=== PATIENT | male | born 1985 | race Two or more races ===

== ENCOUNTER 2018-12-01 16:24 | Inpatient (IN) | payer OTHER ==
[~2018-12-01] VITALS: Ht 188 cm; Wt 68.9 kg
--- NOTE | 2018-12-01 16:40 | NUR ---
[place] 16 TRISTANIAN INSERTED AND URINE COLLECTED.
[2018-12-01] MEDS ORDERED: ETOMIDATE 20 MG/10 ML IVPush ONE (17:00)
[2018-12-01] MEDS ORDERED: SUCCINYLCHOLINE 20 MG/ML, 10ML IVPush ONE (17:00)
[2018-12-01] MEDS ORDERED: PROPOFOL 100 ML IV PRN (17:00)
[2018-12-01] MEDS ORDERED: PLEASE ENTER HEIGHT AND WEIGHT MC SCH (17:00)
[2018-12-01 17:01] LABS: BASOPHILS # (AUTO) 0.04 x10^3/uL (0-0.1); BASOPHILS % (AUTO) 1 % (0-1); EOSINOPHILS # (AUTO) 0.39 x10^3/uL (0-0.4); EOSINOPHILS % (AUTO) 6 % (1-7); LYMPHOCYTES # (AUTO) 2.24 x10^3/uL (1-3.4); LYMPHOCYTES % (AUTO) 36 % (22-44); MD NO; MEAN CORPUSCULAR HEMOGLOBIN 34.2 pg (27.5-34.5); MEAN CORPUSCULAR HGB CONC 33.4 g/dL (33.2-36.2); MEAN CORPUSCULAR VOLUME 102.3 fL (81-97); MEAN PLATELET VOLUME 6.9 fL (7.4-10.4); MONOCYTES # (AUTO) 0.22 x10^3/uL (0.2-0.8); MONOCYTES % (AUTO) 4 % (2-9); NEUTROPHILS # (AUTO) 3.28 x10^3/uL (1.8-6.8); NEUTROPHILS % (AUTO) 53 % (42-75); PLATELET COUNT 292 x10^3/uL (130-400); RED BLOOD COUNT 4.27 x10^6/uL (4.38-5.82); RED CELL DISTRIBUTION WIDTH 12.8 % (9.4-14.8)
[2018-12-01 17:06] LABS: ALANINE AMINOTRANSFERASE 35 U/L (12-78); ANION GAP 9 mmol/L (5-15); CALCIUM 8.6 mg/dL (8.5-10.1); CHLORIDE 112 mmol/L (98-107)
[2018-12-01 17:09] LABS: ALKALINE PHOSPHATASE 109 U/L (45-117); BILIRUBIN,TOTAL 0.5 mg/dL (0.2-1.0); TOTAL PROTEIN 8.1 g/dL (6.4-8.2)
--- NOTE | 2018-12-01 17:32 | NUR ---
LATE ENTRY: 1630: PT BIB [facility] WHERE PT WAS FOUND DOWN IN ALLEY WAY PRONE. PT WITH GCS OF 3 PER [facility]. PT WITH NO GAG REFLEX. MD AT BEDSIDE. PT PREPPED FOR INTUBATION.
--- NOTE | 2018-12-01 17:34 | NUR ---
1630 LATE ENTRY: PT GIVEN 20 ETOMIDATE AND 100 OF SUCCINYLCHOLINE IV. PT INTUBATED WITH ET TUBE OF 8, 26 AT THE LIP. PT GIVE PROPOFOL IV PUSH OF 30 MCG BY FOR SEDATION. 1648 NG TUBE INSERTED RIGHT NARE AND PLACEMENT VERIFIED BY AUSCULTATION OF ABDOMEN. 2ND IV STARTED LEFT AC 18 GAUGE.
--- NOTE | 2018-12-01 17:40 | NUR ---
REPORT GIVEN TO ANA MARIA MANAGER WELDING. PT TO GO TO CT PRIOR TO GOING UPSTAIRS.
--- NOTE | 2018-12-01 17:41 | NUR ---
VENT SETTINGS: 50% O2, 5.0 PEEP, 550 TV,14 RESP
--- NOTE | 2018-12-01 18:03 | NUR ---
PT TAKEN TO CT SCAN PRIOR TO GOING UPSTAIRS TO FLOOR
[2018-12-01 18:17] LABS: AMPHETAMINE SCREEN, URINE Negative (Negative); BARBITURATE SCREEN, URINE Negative (Negative); BENZODIAZEPINE SCREEN, URINE Negative (Negative); CANNABINOID SCREEN, URINE Negative (Negative); COCAINE SCREEN, URINE Negative (Negative); METHADONE SCREEN, URINE Negative (Negative); OPIATE SCREEN, URINE Negative (Negative)
--- NOTE | 2018-12-01 18:31 | NUR ---
PT BACK FROM CT SCAN. PT PLACED BACK ON CARDIAC, BP, SPO2 MONITOR. PT PLACED BACK ON VENT.
--- NOTE | 2018-12-01 18:36 | NUR ---
LAB AT BEDSIDE FOR ABGS
[2018-12-01] MEDS ORDERED: OMNIPAQUE 350 MG/ML, 100ML BOTTLE ONE (18:44)
--- NOTE | 2018-12-01 18:58 | NUR ---
REPORT GIVEN TO CRYSTAL SHARMA. PT WILL THEN BE TRANSFERRED TO CCU.
[2018-12-01] MEDS ORDERED: SENNA/DOCUSATE TABLET NG PRN (19:30)
[2018-12-01] MEDS ORDERED: SENNA 176 MG/5 ML ORAL SOL NG PRN (19:30)
[2018-12-01] MEDS ORDERED: FENTANYL PF 100 MCG/2ML IVPush PRN (19:30)
[2018-12-01] MEDS ORDERED: ONDANSETRON 2MG/ML, 2ML IVPush PRN (19:30)
[2018-12-01] MEDS ORDERED: THIAMINE 200 MG in DEXTROSE 5% 50 ML IVPB ONE (19:30)
[2018-12-01] MEDS ORDERED: SODIUM CHLORIDE 0.9% 1,000ML IVBOLUS ONE (19:30)
[2018-12-01] MEDS ORDERED: LABETALOL 5MG/ML, 20ML IVPush PRN (19:30)
[2018-12-01] MEDS ORDERED: GLUCAGON 1 MG IM PRN (19:30)
[2018-12-01] MEDS ORDERED: BISACODYL 10 MG SUPP PR PRN (19:30)
[2018-12-01] MEDS ORDERED: LACTULOSE 20 GM/30 ML UDC NG PRN (19:30)
[2018-12-01] MEDS ORDERED: DEXTROSE 4 GM TAB.CHEW PO PRN (19:30)
[2018-12-01] MEDS ORDERED: PHARMACY MAY ADJ FOR RENAL FX MC SCH (19:30)
[2018-12-01] MEDS ORDERED: hydrALAzine 20 MG/ML, 1ML IVPush PRN (19:30)
[2018-12-01] MEDS ORDERED: FOLIC ACID 5 MG/ML IM ONE (19:30)
[2018-12-01] MEDS ORDERED: ACETAMINOPHEN 650 MG SUPP PR PRN (19:30)
[2018-12-01] MEDS ORDERED: LIDOCAINE-MPF 1%, 2ML ENDO PRN (19:30)
[2018-12-01] MEDS ORDERED: DEXTROSE 50%, 50ML SYRINGE IVPush PRN (19:30)
[2018-12-01] MEDS ORDERED: FAMOTIDINE 20 MG/2 ML IV SCH (20:00)
[2018-12-01] MEDS ORDERED: ENOXAPARIN 40 MG/0.4 ML SQ SCH (20:00)
[2018-12-01] MEDS: D5%-0.45NACL+KCL 40MEQ 1,000 ML IV SCH (20:12)
[2018-12-01 20:15] LABS: TROPONIN I < 0.015 ng/mL (0.000-0.045)
[2018-12-01] MEDS ORDERED: PROPOFOL 10 MG/ML, 20ML ONE (20:43)
[2018-12-01] MEDS ORDERED: SUCCINYLCHOLINE 20 MG/ML, 10ML ONE (20:43)
[2018-12-01] MEDS ORDERED: ETOMIDATE 20 MG/10 ML ONE (20:43)
[2018-12-01] MEDS ORDERED: PROPOFOL 10 MG/ML, 100ML IV ONE (20:43)
[2018-12-01] MEDS: INSULIN LISPRO 100 UNITS/ML, PEN SQ-INSULIN SCH (21:00)
[2018-12-01] MEDS: SODIUM CHLORIDE FLUSH 10ML SYR IVF SCH (21:00)
[2018-12-01] MEDS: HEPARIN 5,000 UNITS/ML, 1ML SQ SCH (21:26)
[2018-12-01] MEDS: FAMOTIDINE 20 MG/2 ML IVPush SCH (21:27)
[2018-12-01 21:31] LABS: SALICYLATE LEVEL < 1.7 mg/dL (2.8-20.0)
[2018-12-01] MEDS: AMPICILLIN/SULBACTAM 1,500 MG in SODIUM CHLORIDE 0.9% 50 ML IV SCH (21:34)
[2018-12-01] MEDS: ALBUTEROL/IPRATROPIUM 2.5MG/0.5MG, 3 ML INLINE SCH (23:30)
[2018-12-02 00:16] VITALS: BP 102/69
[2018-12-02] MEDS: PROPOFOL 100 ML IV PRN ×2 (00:33→06:21)
[2018-12-02] MEDS: ALBUTEROL/IPRATROPIUM 2.5MG/0.5MG, 3 ML INLINE SCH ×2 (02:17→06:58)
[2018-12-02 02:26] LABS: BASOPHILS # (AUTO) 0.02 x10^3/uL (0-0.1); BASOPHILS % (AUTO) 0 % (0-1); EOSINOPHILS # (AUTO) 0.18 x10^3/uL (0-0.4); EOSINOPHILS % (AUTO) 3 % (1-7); LYMPHOCYTES # (AUTO) 1.74 x10^3/uL (1-3.4); LYMPHOCYTES % (AUTO) 26 % (22-44); MD NO; MEAN CORPUSCULAR HEMOGLOBIN 34.5 pg (27.5-34.5); MEAN CORPUSCULAR HGB CONC 33.6 g/dL (33.2-36.2); MEAN CORPUSCULAR VOLUME 102.7 fL (81-97); MEAN PLATELET VOLUME 6.9 fL (7.4-10.4); MONOCYTES # (AUTO) 0.29 x10^3/uL (0.2-0.8); MONOCYTES % (AUTO) 4 % (2-9); NEUTROPHILS # (AUTO) 4.49 x10^3/uL (1.8-6.8); NEUTROPHILS % (AUTO) 67 % (42-75); PLATELET COUNT 245 x10^3/uL (130-400); RED BLOOD COUNT 3.98 x10^6/uL (4.38-5.82)
[2018-12-02 02:33] LABS: ALANINE AMINOTRANSFERASE 30 U/L (12-78); ALBUMIN 3.4 g/dL (3.4-5.0); ANION GAP 13 mmol/L (5-15); CALCIUM 7.8 mg/dL (8.5-10.1); CHLORIDE 117 mmol/L (98-107); CREATININE 0.64 mg/dL (0.7-1.3)
[2018-12-02 02:35] LABS: ALKALINE PHOSPHATASE 96 U/L (45-117); BILIRUBIN,TOTAL 0.5 mg/dL (0.2-1.0); TOTAL PROTEIN 6.9 g/dL (6.4-8.2)
[2018-12-02 02:43] LABS: TROPONIN I < 0.015 ng/mL (0.000-0.045)
[2018-12-02] MEDS: AMPICILLIN/SULBACTAM 1,500 MG in SODIUM CHLORIDE 0.9% 50 ML IV SCH ×4 (03:36→21:54)
[2018-12-02] MEDS: HEPARIN 5,000 UNITS/ML, 1ML SQ SCH ×3 (03:36→20:42)
[2018-12-02] MEDS: D5%-0.45NACL+KCL 40MEQ 1,000 ML IV SCH (04:00)
[2018-12-02 04:13] LABS: MICROSCOPIC AUTO
[2018-12-02 04:14] LABS: CULTURE INDICATED? NO
[2018-12-02] MEDS: INSULIN LISPRO 100 UNITS/ML, PEN SQ-INSULIN SCH (06:14)
[2018-12-02] MEDS ORDERED: D5%-0.45NACL+KCL 40MEQ 1,000 ML IV SCH (08:30)
[2018-12-02] MEDS: SODIUM CHLORIDE FLUSH 10ML SYR IVF SCH ×2 (08:56→19:26)
[2018-12-02] MEDS: FAMOTIDINE 20 MG/2 ML IVPush SCH ×2 (08:56→20:42)
[2018-12-02] MEDS ORDERED: MAGNESIUM SULFATE PMX 2GM/50ML 50 ML IV ONE (12:00)
[2018-12-02] MEDS ORDERED: THIAMINE IV SCH (19:00)
[2018-12-02] MEDS ORDERED: THIAMINE 100 MG in SODIUM CHLORIDE 0.9% 50 ML IV SCH (19:00)
[2018-12-02] MEDS ORDERED: CHLORDIAZEPOXIDE 25 MG CAPSULE PO SCH ×2 (19:00→21:00)
[2018-12-02] MEDS ORDERED: LORazepam 1MG TABLET PO PRN ×4 (19:00)
[2018-12-02] MEDS ORDERED: LORazepam 0.5MG TABLET PO PRN (19:00)
[2018-12-02] MEDS ORDERED: LORazepam 2 MG/ML, 1ML IV PRN ×4 (19:00)
[2018-12-02] MEDS ORDERED: DEXTROSE 5% IV SCH (19:00)
[2018-12-02] MEDS ORDERED: FOLIC ACID IV SCH (19:00)
[2018-12-02] MEDS ORDERED: MVI ADULT IV SCH (19:00)
[2018-12-02] MEDS: LORazepam 2 MG/ML, 1ML IV PRN (19:18)
[2018-12-03] MEDS: CHLORDIAZEPOXIDE 25 MG CAPSULE PO SCH ×7 (00:53→20:36)
[2018-12-03] MEDS: LORazepam 2 MG/ML, 1ML IV PRN (00:54)
[2018-12-03 04:19] LABS: BASOPHILS # (AUTO) 0.03 x10^3/uL (0-0.1); BASOPHILS % (AUTO) 1 % (0-1); EOSINOPHILS # (AUTO) 0.15 x10^3/uL (0-0.4); EOSINOPHILS % (AUTO) 3 % (1-7); LYMPHOCYTES # (AUTO) 0.85 x10^3/uL (1-3.4); LYMPHOCYTES % (AUTO) 17 % (22-44); MD NO; MEAN CORPUSCULAR HEMOGLOBIN 34.5 pg (27.5-34.5); MEAN CORPUSCULAR HGB CONC 34.1 g/dL (33.2-36.2); MEAN CORPUSCULAR VOLUME 101.1 fL (81-97); MEAN PLATELET VOLUME 7.2 fL (7.4-10.4); MONOCYTES # (AUTO) 0.36 x10^3/uL (0.2-0.8); MONOCYTES % (AUTO) 7 % (2-9); NEUTROPHILS # (AUTO) 3.55 x10^3/uL (1.8-6.8); NEUTROPHILS % (AUTO) 72 % (42-75); PLATELET COUNT 162 x10^3/uL (130-400); RED BLOOD COUNT 3.56 x10^6/uL (4.38-5.82); RED CELL DISTRIBUTION WIDTH 12.7 % (9.4-14.8)
[2018-12-03] MEDS: AMPICILLIN/SULBACTAM 1,500 MG in SODIUM CHLORIDE 0.9% 50 ML IV SCH (04:23)
[2018-12-03] MEDS: HEPARIN 5,000 UNITS/ML, 1ML SQ SCH ×3 (04:29→20:36)
[2018-12-03] MEDS: ACETAMINOPHEN 325 MG TABLET PO PRN ×2 (04:29→23:52)
[2018-12-03] MEDS ORDERED: LORazepam 2 MG/ML, 1ML IVPush PRN (07:00)
[2018-12-03 08:11] LABS: CREATININE 0.63 mg/dL (0.7-1.3)
[2018-12-03 08:27] LABS: ANION GAP 10 mmol/L (5-15); CALCIUM 8.6 mg/dL (8.5-10.1); CHLORIDE 106 mmol/L (98-107)
[2018-12-03] MEDS ORDERED: POTASSIUM CHLORIDE 20 MEQ TAB.ER.PRT PO ONE (09:00)
[2018-12-03] MEDS ORDERED: THIAMINE 100 MG in DEXTROSE 5% 50 ML IVPB SCH (09:00)
[2018-12-03] MEDS: AMPICILLIN/SULBACTAM 3 GM in SODIUM CHLORIDE 0.9% 100 ML IV SCH ×3 (09:36→23:49)
[2018-12-03] MEDS: SODIUM CHLORIDE FLUSH 10ML SYR IVF SCH ×2 (09:36→20:37)
[2018-12-03 13:30] VITALS: BP 131/88
[2018-12-03] MEDS ORDERED: CHLORDIAZEPOXIDE 25 MG CAPSULE PO SCH (17:00)
[2018-12-03] MEDS ORDERED: MVI ADULT IV SCH (19:00)
[2018-12-03] MEDS ORDERED: DEXTROSE 5% IV SCH (19:00)
[2018-12-03] MEDS ORDERED: FOLIC ACID IV SCH (19:00)
[2018-12-03] MEDS ORDERED: THIAMINE IV SCH (19:00)
[2018-12-03 19:56] VITALS: BP 130/72
[2018-12-04 01:01] VITALS: BP 122/77
[2018-12-04] MEDS: HEPARIN 5,000 UNITS/ML, 1ML SQ SCH ×2 (03:35→11:56)
[2018-12-04] MEDS: AMPICILLIN/SULBACTAM 3 GM in SODIUM CHLORIDE 0.9% 100 ML IV SCH ×2 (05:37→11:47)
[2018-12-04 06:11] LABS: ANION GAP 6 mmol/L (5-15); CALCIUM 8.8 mg/dL (8.5-10.1); CHLORIDE 107 mmol/L (98-107); CREATININE 0.58 mg/dL (0.7-1.3)
[2018-12-04] MEDS ORDERED: POTASSIUM CHLORIDE 20 MEQ TAB.ER.PRT PO ONE (06:30)
[2018-12-04 07:52] VITALS: BP 124/74
[2018-12-04] MEDS: CHLORDIAZEPOXIDE 25 MG CAPSULE PO SCH (08:07)
[2018-12-04] MEDS: SODIUM CHLORIDE FLUSH 10ML SYR IVF SCH (08:07)
[2018-12-04] MEDS ORDERED: AMOX1TAB61 PO (09:47)
[2018-12-04] MEDS ORDERED: MULT-658 PO (09:47)
[2018-12-04 14:10] VITALS: BP 139/80
== END 2018-12-04 15:50 | disposition home or self-care (01) | DRG 208 ==
LOC: ED 17:01 → EDBD 17:02 → EDIP 17:02 → ED 17:07 → CCU 19:17 → 3NE 12-03 11:19
PROVIDERS: ADMIT Internal Medicine; ATTEND Internal Medicine
PROC: 5A1935Z Respiratory Ventilation, Less than 24 Consecutive Hours (ICD-10-PCS; principal; 2018-12-01)
PROC: 0BH17EZ Insertion of Endotracheal Airway into Trachea, Via Natural or Artificial Opening (ICD-10-PCS; 2018-12-01)
PROC: 0T9B70Z Drainage of Bladder with Drainage Device, Via Natural or Artificial Opening (ICD-10-PCS; 2018-12-02)
DX: J96.00 Acute respiratory failure, unspecified whether with hypoxia or hypercapnia (principal); G92 Toxic encephalopathy; J69.0 Pneumonitis due to inhalation of food and vomit; F10.230 Alcohol dependence with withdrawal, uncomplicated; J98.11 Atelectasis; E87.0 Hyperosmolality and hypernatremia; M87.851 Other osteonecrosis, right femur; M87.852 Other osteonecrosis, left femur; Z99.11 Dependence on respirator [ventilator] status; K76.0 Fatty (change of) liver, not elsewhere classified; F10.220 Alcohol dependence with intoxication, uncomplicated; Y90.9 Presence of alcohol in blood, level not specified; F15.90 Other stimulant use, unspecified, uncomplicated; F19.10 Other psychoactive substance abuse, uncomplicated
CPT/HCPCS: 31500; 36415; 36600; 84145; 99291; J3490; J7620; 70450; 71045; 72125; 74177; 80048; 80053; 80307; 81001; 82803; 82962; 83605; 83690; 83735; 84100; 84478; 84484; 85025; 87070; 87081; 87205; 93005; 93306; 94002; 94003; 94640; G0378; J0295; J1644; J2704; J3010; J3411; J7070; Q9967; J0330; J2060; J3475; J3480; J7030

== ENCOUNTER 2019-04-09 17:06 | Emergency (ER) | payer MEDICAID ==
[~2019-04-09] VITALS: Ht 180.3 cm; Wt 90.0 kg
[~2019-04-09 17:06] MED LIST: AMOX1TAB61 PO; MULT-658 PO
--- NOTE | 2019-04-09 17:14 | NUR ---
PT BIB [facility] FOR ACUTE ETOH. FS ON SCENE 107. PT AAO X 4, STEADY GAIT, NAD, ROOM AIR, VSS. PT AMBULATORY TO [facility] AND ATTACHED TO MONITOR. PT DENIES MEDICATIONS AND MEDICAL HX. SIDERAIL X [address]
--- NOTE | 2019-04-09 17:15 | NUR ---
MED REC COMPLETED.
[2019-04-09] MEDS ORDERED: ONDANSETRON ODT 8 MG PO ONE (17:30)
[2019-04-09] MEDS ORDERED: ONDANSETRON ODT 8 MG ONE (17:32)
--- NOTE | 2019-04-09 17:34 | NUR ---
PT MEDICATED WITH PO ZOFRAN, REFUSED IM SHOT OF THIAMINE DESPITE EDUCATION. THIS RN TO UPDATE .
[2019-04-09] MEDS ORDERED: THIAMINE 100 MG/ML, 2ML IM ONE (18:00)
[2019-04-09 18:09] LABS: ANION GAP 10 mmol/L (5-15); CALCIUM 8.7 mg/dL (8.5-10.1); CHLORIDE 110 mmol/L (98-107); CREATININE 0.78 mg/dL (0.7-1.3)
--- NOTE | 2019-04-09 18:31 | NUR ---
LAB CALLED AND NOTIFIED THIS RN THAT ETHANOL RESULTS WAS 0.457. THIS RN TO NOTIFY
--- NOTE | 2019-04-09 18:33 | NUR ---
DR. FOY NOTIFED OF CRITICAL VALUE, NO NEW ORDERS RECEIVED AT THIS TIME.
--- NOTE | 2019-04-09 19:31 | NUR ---
PT ASLEEP ON GURNEY, AROUSABLE BUT UNABLE TO STAY AWAKE DURING CONVERSATION.
--- NOTE | 2019-04-09 21:14 | NUR ---
REPORT FROM STEPHY SHARMA. PT SLEEPING AND AROUSES TO VOICE. VSS.
--- NOTE | 2019-04-09 21:18 | NUR ---
REPORT GIVEN TO EDITH RAMOS. CARE TRANSFERRED AT THIS TIME.
--- NOTE | 2019-04-09 22:34 | NUR ---
PT SLEEPING WITH NO NEEDS AT THIS TIME. VSS. PT AROUSES TO VOICE. CALL LIGHT IN REACH
[2019-04-09 23:58] VITALS: BP 110/67
--- NOTE | 2019-04-09 23:58 | NUR ---
PT SLEEPING. EVEN RISE AND FALL OF CHEST OBSERVED. VSS. PT AROUSES TO VOICE AND THEN GOES BACK TO SLEEP. PT HAS NO NEEDS AT THIS TIME.
--- NOTE | 2019-04-10 01:21 | NUR ---
Patient given discharge instructions and they have confirmed that they understand the instructions. Patient ambulatory with steady gait and given a cab voucher for safe discharge
== END 2019-04-10 01:25 | disposition home or self-care (01) ==
LOC: ED 04-10 01:20
DX: F10.221 Alcohol dependence with intoxication delirium (principal); G92 Toxic encephalopathy
CPT/HCPCS: 36415; 80048; 80307; 83735; 99283; Q0162

== ENCOUNTER 2019-06-12 03:50 | Emergency (ER) | payer SELFPAY ==
[~2019-06-12] VITALS: Ht 180.3 cm; Wt 68.2 kg
--- NOTE | 2019-06-12 04:11 | NUR ---
Patient [place] in by EMS [place] on the sidewalk. EMS reports patient was unsteady and unable to walk on his own and he urinated on himself. Intoxicated and blew over a 0.3. Patient responds appropraitely to questions and reports he drinks like this often.
--- NOTE | 2019-06-12 05:54 | NUR ---
Attempted to walk patient, patient was unsteady on his feet and unable to walk at this time. Provider informed.
--- NOTE | 2019-06-12 06:19 | NUR ---
Patient resting in bed, arousable. O2 saturation dropped to 84% while sleeping oxygen applied via NC. 2L. patient saturations 98%.
--- NOTE | 2019-06-12 07:01 | NUR ---
report received from yumiko james.
[2019-06-12 07:53] VITALS: BP 106/54
--- NOTE | 2019-06-12 07:53 | NUR ---
pt sleeping in [facility]. resps even and unlabored. bp/spo2 monitors in place. call light within reach.
--- NOTE | 2019-06-12 09:03 | NUR ---
Patient given discharge instructions and they have confirmed that they understand the instructions. Patient ambulatory with steady gait.
== END 2019-06-12 09:04 | disposition home or self-care (01) ==
LOC: ED 08:58
DX: F10.120 Alcohol abuse with intoxication, uncomplicated (principal); Y90.0 Blood alcohol level of less than 20 mg/100 ml
CPT/HCPCS: 99283

== ENCOUNTER 2019-11-11 11:44 | Inpatient (IN) | payer MEDICAID ==
[~2019-11-11] VITALS: Ht 180.3 cm; Wt 75.6 kg
--- NOTE | 2019-11-11 11:50 | NUR ---
PT IN [facility], RESTING IN [facility] AT THIS TIME. VSS. AWAITING ERP EVAL.
[2019-11-11] MEDS ORDERED: HYDR-826 PO (11:57)
[2019-11-11] MEDS ORDERED: GABA600T7 PO (11:57)
[2019-11-11] MEDS ORDERED: FLUO20CA19 PO (11:57)
[2019-11-11] MEDS ORDERED: HYDR50TA99 PO (11:57)
--- NOTE | 2019-11-11 12:43 | NUR ---
seizure pads applied to bed. no seizure activity observed nor reported by pt.
[2019-11-11] MEDS ORDERED: SODIUM CHLORIDE FLUSH 10ML SYR IVF ONE (13:30)
[2019-11-11] MEDS ORDERED: SODIUM CHLORIDE 0.9% 1,000ML IVBOLUS ONE (13:30)
[2019-11-11 13:49] LABS: BASOPHILS # (AUTO) 0.02 x10^3/uL (0-0.1); BASOPHILS % (AUTO) 0 % (0-1); EOSINOPHILS # (AUTO) 0.13 x10^3/uL (0-0.4); EOSINOPHILS % (AUTO) 2 % (1-7); LYMPHOCYTES # (AUTO) 0.95 x10^3/uL (1-3.4); LYMPHOCYTES % (AUTO) 14 % (22-44); MD NO; MEAN CORPUSCULAR HEMOGLOBIN 29.2 pg (27.5-34.5); MEAN CORPUSCULAR HGB CONC 33.5 g/dL (33.2-36.2); MEAN CORPUSCULAR VOLUME 87.1 fL (81-97); MEAN PLATELET VOLUME 7.8 fL (7.4-10.4); MONOCYTES # (AUTO) 0.35 x10^3/uL (0.2-0.8); MONOCYTES % (AUTO) 5 % (2-9); NEUTROPHILS # (AUTO) 5.55 x10^3/uL (1.8-6.8); NEUTROPHILS % (AUTO) 79 % (42-75); PLATELET COUNT 213 x10^3/uL (130-400); RED BLOOD COUNT 4.73 x10^6/uL (4.38-5.82); RED CELL DISTRIBUTION WIDTH 12.2 % (9.4-14.8)
--- NOTE | 2019-11-11 13:50 | NUR ---
pt resting calmly in bed. no stated needs at this time. will continue to monitor.
[2019-11-11 13:58] LABS: ALBUMIN 3.6 g/dL (3.4-5.0); ANION GAP 5 mmol/L (5-15); CALCIUM 8.8 mg/dL (8.5-10.1); CHLORIDE 109 mmol/L (98-107); CREATININE 1.01 mg/dL (0.7-1.3)
[2019-11-11 14:02] LABS: TROPONIN I < 0.015 ng/mL (0.000-0.045)
--- NOTE | 2019-11-11 14:27 | NUR ---
pt resting calmly in bed with eyes closed. pt up for recheck. iv started, ordered fluids infusing. will continue to monitor.
--- NOTE | 2019-11-11 15:42 | NUR ---
PT CONTINUES TO REST IN BED WITH EYES CLOSED, DOZING INTERMITTANTLY. NO STATED NEEDS FROM PT. PT TO BE ADMITTED DUE TO SLOW HR. WILL CONTINUE TO MONITOR.
--- NOTE | 2019-11-11 16:22 | NUR ---
PT RESTING IN BED WITH EYES CLOSED. CALL LIGHT WITHIN REACH.
[2019-11-11] MEDS: NS + 20MEQ KCL 1,000 ML IV SCH (17:20)
[2019-11-11] MEDS ORDERED: ONDANSETRON 2MG/ML, 2ML IVPush PRN (17:30)
[2019-11-11] MEDS ORDERED: ACETAMINOPHEN 325 MG TABLET PO PRN (17:30)
[2019-11-11] MEDS ORDERED: LIDODERM 5% PATCH TD PRN (17:30)
[2019-11-11 18:07] LABS: TROPONIN I < 0.015 ng/mL (0.000-0.045)
[2019-11-11 18:12] LABS: FREE T4 (FREE THYROXINE) 1.27 ng/dL (0.76-1.46)
--- NOTE | 2019-11-11 18:29 | NUR ---
PT RESTING CALMLY IN BED. NO STATED NEEDS AT THIS TIME. WILL CONTINUE TO MONITOR.
--- NOTE | 2019-11-11 18:52 | NUR ---
bedside report given to Isaías SHARMA. pt resting calmly in bed. no stated needs at this time.
[2019-11-11] MEDS ORDERED: ENOXAPARIN 40 MG/0.4 ML ONE (19:08)
[2019-11-11] MEDS ORDERED: NS + 20MEQ KCL 1,000 ML IV ONE (19:09)
[2019-11-11] MEDS: ENOXAPARIN 40 MG/0.4 ML SQ SCH (19:17)
--- NOTE | 2019-11-11 20:39 | NUR ---
REPORT TO ISRA SHARMA, SEIZURE PRECAUTIONS IN PLACE.
[2019-11-11 20:57] VITALS: BP 100/66
--- NOTE | 2019-11-11 21:03 | NUR ---
REPORT TO ISRA SHARMA, SEIZURE PRECAUTIONS IN PLACE.
[2019-11-11 21:24] VITALS: BP 100/66
[2019-11-11] MEDS: FAMOTIDINE 20 MG TABLET PO SCH (21:42)
[2019-11-11] MEDS: GABAPENTIN 300 MG CAPSULE PO SCH (21:43)
[2019-11-11] MEDS: hydrOXyzine 50MG TABLET PO SCH (21:43)
[2019-11-11 23:48] LABS: TROPONIN I < 0.015 ng/mL (0.000-0.045)
[2019-11-12 01:33] VITALS: BP 99/62
[2019-11-12] MEDS: NS + 20MEQ KCL 1,000 ML IV SCH ×2 (04:53→15:01)
[2019-11-12 05:36] LABS: ALANINE AMINOTRANSFERASE 44 U/L (12-78); ALBUMIN 3.3 g/dL (3.4-5.0); ANION GAP 6 mmol/L (5-15); CALCIUM 8.6 mg/dL (8.5-10.1); CHLORIDE 113 mmol/L (98-107); CREATININE 0.82 mg/dL (0.7-1.3)
[2019-11-12 05:38] LABS: ALKALINE PHOSPHATASE 63 U/L (45-117); BILIRUBIN,TOTAL 0.5 mg/dL (0.2-1.0); TOTAL PROTEIN 6.6 g/dL (6.4-8.2)
[2019-11-12 05:44] LABS: BASOPHILS # (AUTO) 0.02 x10^3/uL (0-0.1); BASOPHILS % (AUTO) 0 % (0-1); EOSINOPHILS # (AUTO) 0.16 x10^3/uL (0-0.4); EOSINOPHILS % (AUTO) 4 % (1-7); LYMPHOCYTES # (AUTO) 1.54 x10^3/uL (1-3.4); LYMPHOCYTES % (AUTO) 33 % (22-44); MD NO; MEAN CORPUSCULAR HEMOGLOBIN 28.8 pg (27.5-34.5); MEAN CORPUSCULAR HGB CONC 33.1 g/dL (33.2-36.2); MEAN CORPUSCULAR VOLUME 87.2 fL (81-97); MEAN PLATELET VOLUME 8.2 fL (7.4-10.4); MONOCYTES # (AUTO) 0.32 x10^3/uL (0.2-0.8); MONOCYTES % (AUTO) 7 % (2-9); NEUTROPHILS # (AUTO) 2.66 x10^3/uL (1.8-6.8); NEUTROPHILS % (AUTO) 57 % (42-75); PLATELET COUNT 178 x10^3/uL (130-400); RED BLOOD COUNT 4.59 x10^6/uL (4.38-5.82); RED CELL DISTRIBUTION WIDTH 12.2 % (9.4-14.8)
[2019-11-12 07:39] VITALS: BP 117/64
[2019-11-12] MEDS: FAMOTIDINE 20 MG TABLET PO SCH ×2 (09:08→19:54)
[2019-11-12] MEDS: GABAPENTIN 300 MG CAPSULE PO SCH ×3 (09:08→19:54)
[2019-11-12] MEDS: FLUOXETINE HCL 20 MG CAPSULE PO SCH (09:08)
[2019-11-12 12:09] VITALS: BP_SYST 113; BP_SYST 116; BP_DIAS 58; BP_DIAS 72
[2019-11-12 12:10] VITALS: BP 102/59
[2019-11-12 12:17] LABS: MICROSCOPIC INDICATED
[2019-11-12] MEDS ORDERED: GADOTERATE 7.5 MMOL/15 ML SYR ONE (16:00)
[2019-11-12 19:37] VITALS: BP 102/64
[2019-11-12] MEDS: ENOXAPARIN 40 MG/0.4 ML SQ SCH (19:54)
[2019-11-12] MEDS: hydrOXyzine 50MG TABLET PO SCH (19:54)
[2019-11-13] MEDS: NS + 20MEQ KCL 1,000 ML IV SCH ×3 (00:43→16:32)
[2019-11-13 00:47] VITALS: BP 117/76
[2019-11-13 02:41] VITALS: BP 123/77
[2019-11-13 05:11] LABS: BASOPHILS # (AUTO) 0.02 x10^3/uL (0-0.1); BASOPHILS % (AUTO) 0 % (0-1); EOSINOPHILS # (AUTO) 0.14 x10^3/uL (0-0.4); EOSINOPHILS % (AUTO) 3 % (1-7); LYMPHOCYTES # (AUTO) 1.48 x10^3/uL (1-3.4); LYMPHOCYTES % (AUTO) 36 % (22-44); MD NO; MEAN CORPUSCULAR HGB CONC 33.2 g/dL (33.2-36.2); MEAN CORPUSCULAR VOLUME 87.3 fL (81-97); MEAN PLATELET VOLUME 8.2 fL (7.4-10.4); MONOCYTES # (AUTO) 0.29 x10^3/uL (0.2-0.8); MONOCYTES % (AUTO) 7 % (2-9); NEUTROPHILS % (AUTO) 53 % (42-75); PLATELET COUNT 163 x10^3/uL (130-400); RED CELL DISTRIBUTION WIDTH 12.6 % (9.4-14.8)
[2019-11-13 05:16] LABS: ANION GAP 6 mmol/L (5-15); CALCIUM 8.9 mg/dL (8.5-10.1); CHLORIDE 111 mmol/L (98-107); CREATININE 0.81 mg/dL (0.7-1.3)
[2019-11-13 06:52] VITALS: BP 108/64
[2019-11-13] MEDS: GABAPENTIN 300 MG CAPSULE PO SCH ×3 (10:12→20:47)
[2019-11-13] MEDS: FLUOXETINE HCL 20 MG CAPSULE PO SCH (10:12)
[2019-11-13] MEDS: FAMOTIDINE 20 MG TABLET PO SCH ×2 (10:13→20:47)
[2019-11-13] MEDS ORDERED: CEFAZOLIN PMX 1GM/50ML 50 ML IVPB ONE (10:30)
[2019-11-13 13:07] VITALS: BP 98/58
[2019-11-13] MEDS: ENOXAPARIN 40 MG/0.4 ML SQ SCH (13:14)
[2019-11-13 19:08] VITALS: BP 105/60
[2019-11-13] MEDS: hydrOXyzine 50MG TABLET PO SCH (20:47)
[2019-11-14 00:28] VITALS: BP 106/63
[2019-11-14] MEDS: NS + 20MEQ KCL 1,000 ML IV SCH ×3 (01:09→21:06)
[2019-11-14 04:45] LABS: BASOPHILS # (AUTO) 0.02 x10^3/uL (0-0.1); BASOPHILS % (AUTO) 1 % (0-1); EOSINOPHILS # (AUTO) 0.16 x10^3/uL (0-0.4); EOSINOPHILS % (AUTO) 4 % (1-7); LYMPHOCYTES % (AUTO) 33 % (22-44); MD NO; MEAN CORPUSCULAR HEMOGLOBIN 29.3 pg (27.5-34.5); MEAN CORPUSCULAR HGB CONC 33.6 g/dL (33.2-36.2); MEAN PLATELET VOLUME 8.1 fL (7.4-10.4); MONOCYTES # (AUTO) 0.41 x10^3/uL (0.2-0.8); MONOCYTES % (AUTO) 10 % (2-9); NEUTROPHILS % (AUTO) 54 % (42-75); PLATELET COUNT 169 x10^3/uL (130-400); RED BLOOD COUNT 4.56 x10^6/uL (4.38-5.82); RED CELL DISTRIBUTION WIDTH 12.1 % (9.4-14.8)
[2019-11-14 04:54] LABS: CHLORIDE 111 mmol/L (98-107)
[2019-11-14 04:59] LABS: ANION GAP 7 mmol/L (5-15); CALCIUM 8.8 mg/dL (8.5-10.1); CREATININE 0.93 mg/dL (0.7-1.3)
[2019-11-14 06:37] VITALS: BP 112/67
[2019-11-14] MEDS: GABAPENTIN 300 MG CAPSULE PO SCH ×3 (08:11→21:06)
[2019-11-14] MEDS: FLUOXETINE HCL 20 MG CAPSULE PO SCH (08:11)
[2019-11-14] MEDS: FAMOTIDINE 20 MG TABLET PO SCH ×2 (08:11→21:06)
[2019-11-14] MEDS: SODIUM CHLORIDE 0.9% 1,000 ML IV SCH ×3 (10:07→23:36)
[2019-11-14 12:04] VITALS: BP 113/65
[2019-11-14] MEDS ORDERED: MIDAZOLAM 1 MG/ML, 5ML ONE (15:26)
[2019-11-14] MEDS ORDERED: CEFAZOLIN PMX 1GM/50ML 50 ML ONE ×2 (15:26→15:28)
[2019-11-14] MEDS ORDERED: FENTANYL PF 100 MCG/2ML ONE (15:26)
[2019-11-14] MEDS ORDERED: LIDOCAINE 2%, 20ML ONE (15:27)
[2019-11-14] MEDS ORDERED: CEFAZOLIN 1,000 MG ONE (15:27)
[2019-11-14] MEDS ORDERED: HOLD MEDICATION MC PRN (17:30)
[2019-11-14] MEDS ORDERED: HYDROcodone/APAP 5/325 TABLET PO PRN (17:30)
[2019-11-14 20:04] VITALS: BP 161/99
[2019-11-14] MEDS: SODIUM CHLORIDE FLUSH 10ML SYR IVF SCH (21:06)
[2019-11-14] MEDS: hydrOXyzine 50MG TABLET PO SCH (21:06)
[2019-11-15 01:54] VITALS: BP 123/53
[2019-11-15] MEDS: NS + 20MEQ KCL 1,000 ML IV SCH (05:00)
[2019-11-15 07:25] VITALS: BP 137/88
[2019-11-15] MEDS: GABAPENTIN 300 MG CAPSULE PO SCH (09:31)
[2019-11-15] MEDS: FLUOXETINE HCL 20 MG CAPSULE PO SCH (09:32)
[2019-11-15] MEDS: SODIUM CHLORIDE FLUSH 10ML SYR IVF SCH (09:32)
[2019-11-15] MEDS: FAMOTIDINE 20 MG TABLET PO SCH (09:32)
[2019-11-15] MEDS: SODIUM CHLORIDE 0.9% 1,000 ML IV SCH (10:29)
== END 2019-11-15 11:25 | disposition home or self-care (01) | DRG 244 ==
LOC: ED 15:43 → EDIP 15:57 → INTOOBSV 15:57 → OBSVTOIN 15:57 → 4EST 21:23 → 5SO 11-14 17:18 → DCLOUNGE 11-15 11:15
PROVIDERS: ADMIT Internal Medicine; ATTEND Hospitalist
PROC: 0JH606Z Insertion of Pacemaker, Dual Chamber into Chest Subcutaneous Tissue and Fascia, Open Approach (ICD-10-PCS; principal; 2019-11-14)
PROC: 02HK3JZ Insertion of Pacemaker Lead into Right Ventricle, Percutaneous Approach (ICD-10-PCS; 2019-11-14)
PROC: 02H63JZ Insertion of Pacemaker Lead into Right Atrium, Percutaneous Approach (ICD-10-PCS; 2019-11-14)
PROC: 4B02XSZ Measurement of Cardiac Pacemaker, External Approach (ICD-10-PCS; 2019-11-15)
DX: R00.1 Bradycardia, unspecified (principal); I95.0 Idiopathic hypotension; R56.9 Unspecified convulsions; Z82.49 Family history of ischemic heart disease and other diseases of the circulatory system; Z95.0 Presence of cardiac pacemaker; Z87.891 Personal history of nicotine dependence
CPT/HCPCS: 33208; 36415; 70553; 71045; 80048; 80053; 81001; 82040; 82607; 83036; 84439; 84443; 84484; 85025; 93005; 93306; 95819; 96360; 99156; 99157; 99285; C1769; C1779; C1785; C1892; C1894; G0378; J0690; J1650; J2250; J3010; J3480; A9575; J7030; Q0177

== ENCOUNTER 2020-05-14 02:44 | Emergency (ER) | payer MEDICAID ==
[~2020-05-14] VITALS: Ht 180.3 cm; Wt 72.7 kg
[~2020-05-14 02:44] MED LIST changes: +FLUO20CA19 PO; +GABA600T7 PO; +HYDR-826 PO; +HYDR50TA99 PO
[2020-05-14] MEDS ORDERED: THIAMINE 100MG TABLET PO ONE (03:00)
[2020-05-14 03:30] LABS: ALBUMIN 4.2 g/dL (3.4-5.0); ANION GAP 8 mmol/L (5-15); BASOPHILS % (AUTO) 1 % (0-1); CALCIUM 8.4 mg/dL (8.5-10.1); CHLORIDE 111 mmol/L (98-107); CREATININE 0.85 mg/dL (0.7-1.3); EOSINOPHILS % (AUTO) 3 % (1-7); LYMPHOCYTES % (AUTO) 29 % (22-44); MEAN CORPUSCULAR HEMOGLOBIN 30.3 pg (27.5-34.5); MEAN CORPUSCULAR HGB CONC 34.9 g/dL (33.2-36.2); MEAN PLATELET VOLUME 7.3 fL (7.4-10.4); MONOCYTES % (AUTO) 3 % (2-9); NEUTROPHILS % (AUTO) 65 % (42-75); PLATELET COUNT 240 x10^3/uL (130-400); RED BLOOD COUNT 4.74 x10^6/uL (4.38-5.82); RED CELL DISTRIBUTION WIDTH 14.1 % (9.4-14.8)
[2020-05-14 03:33] LABS: SALICYLATE LEVEL < 1.7 mg/dL (2.8-20.0)
[2020-05-14] MEDS ORDERED: THIAMINE 100MG TABLET ONE (03:40)
[2020-05-14 03:41] LABS: MD NO
--- NOTE | 2020-05-14 03:42 | NUR ---
JOVANI GALE FOR CC OF "FEELING OUT OF IT". PER EMS REPORT PT CALLED FROM WORK AT [facility] [employer]. PT STATES HE DRANK "7 SMIRNOFF" RIGHT BEFORE CALLING EMS. PT GIVING INCONSISTENT STORY TO ERP.
[2020-05-14 04:45] VITALS: BP 107/70
== END 2020-05-14 05:00 | disposition home or self-care (01) ==
LOC: ED 04:32
DX: F10.220 Alcohol dependence with intoxication, uncomplicated (principal); Z87.891 Personal history of nicotine dependence; Y90.9 Presence of alcohol in blood, level not specified
CPT/HCPCS: 36415; 70450; 80048; 80299; 80320; 80329; 82040; 85025; 99284; G0480

== ENCOUNTER 2020-12-12 08:07 | Observation (INO) | payer MEDICAID ==
[~2020-12-12] VITALS: Ht 180.3 cm; Wt 65.0 kg
[2020-12-12] MEDS ORDERED: THIAMINE 100MG TABLET ONE (08:28)
[2020-12-12] MEDS ORDERED: THIAMINE 100MG TABLET PO ONE (08:30)
[2020-12-12] MEDS ORDERED: SODIUM CHLORIDE 0.9% 1,000ML IVBOLUS ONE (08:30)
[2020-12-12 08:39] LABS: BASOPHILS % (AUTO) 1 % (0-1); EOSINOPHILS % (AUTO) 4 % (1-7); LYMPHOCYTES % (AUTO) 34 % (22-44); MEAN CORPUSCULAR HEMOGLOBIN 30.2 pg (27.5-34.5); MEAN CORPUSCULAR HGB CONC 34.5 g/dL (33.2-36.2); MEAN PLATELET VOLUME 6.9 fL (7.4-10.4); MONOCYTES % (AUTO) 13 % (2-9); NEUTROPHILS % (AUTO) 48 % (42-75); PLATELET COUNT 149 x10^3/uL (130-400); RED BLOOD COUNT 4.68 x10^6/uL (4.38-5.82); RED CELL DISTRIBUTION WIDTH 14.3 % (9.4-14.8)
[2020-12-12 08:50] LABS: ALBUMIN 3.5 g/dL (3.4-5.0); ANION GAP 14 mmol/L (5-15); CALCIUM 8.5 mg/dL (8.5-10.1); CHLORIDE 95 mmol/L (98-107); CREATININE 0.73 mg/dL (0.7-1.3)
[2020-12-12] MEDS ORDERED: POTASSIUM CHLORIDE 20 MEQ TAB.ER.PRT PO ONE (09:30)
[2020-12-12] MEDS ORDERED: POTASSIUM CHLORIDE 20 MEQ TAB.ER.PRT ONE (09:47)
[2020-12-12] MEDS ORDERED: POTASSIUM CHLORIDE 40 MEQ in SODIUM CHLORIDE 0.9% 500 ML IV ONE (10:00)
[2020-12-12 16:21] VITALS: BP 125/78
--- NOTE | 2020-12-12 16:23 | NUR ---
PT AMBULATED STEADILY TO LOBBY. PT STATES HE WILL TAKE THE BUS HOME.
== END 2020-12-12 16:57 | disposition home or self-care (01) ==
LOC: ED 10:09 → EDIP 10:44 → INTOOBSV 10:44
PROVIDERS: ADMIT Emergency Medicine; ATTEND Emergency Medicine
DX: F10.229 Alcohol dependence with intoxication, unspecified (principal); E87.6 Hypokalemia
CPT/HCPCS: 36415; 80048; 80320; 82040; 83735; 85025; 93005; 96365; 96366; G0378; J3480; J7030; J7040; G0480

== ENCOUNTER 2020-12-28 18:07 | Emergency (ER) | payer MEDICAID ==
[~2020-12-28] VITALS: Ht 185.4 cm; Wt 75.0 kg
--- NOTE | 2020-12-28 18:17 | NUR ---
On cont pulse ox/b/p. side rails up, call contreras in reach, bed low. Pt has no complaints, RR equal and unlabored, will continue to monitor. POC MTF
--- NOTE | 2020-12-28 18:56 | NUR ---
BEDSIDE REPORT FROM ESTEE SHARMACLINIC CLERK OF CARE AT THIS TIME, PT RESTING ON [facility] [address]
--- NOTE | 2020-12-28 20:24 | NUR ---
PT RESTING ON GURNEY RESP EVEN AND UNLABORED NADN, VSS NO NEEDS AT THIS TIME.
[2020-12-28 21:19] VITALS: BP 98/66
--- NOTE | 2020-12-28 21:19 | NUR ---
PT RESTING ON GURNEY RESP EVEN AND UNLABORED NADN, VSS NO NEEDS AT THIS TIME.
--- NOTE | 2020-12-28 22:27 | NUR ---
PT OUT OF BED, AMB WITH STEADY GAIT ABLE TO ANSWER ALL A/O QUESTIONS. PT NOW CALLING FRIENDS FOR SAFE DC
--- NOTE | 2020-12-28 22:51 | NUR ---
Patient/Caregiver given discharge instructions and they have confirmed that they understand the instructions. Patient ambulatory with steady gait. NAD, all questions answered appropriately, denies additional needs at this time. No personal belongings left in room after discharge.
== END 2020-12-28 22:53 | disposition home or self-care (01) ==
LOC: ED 19:44
DX: F10.220 Alcohol dependence with intoxication, uncomplicated (principal); Y90.0 Blood alcohol level of less than 20 mg/100 ml
CPT/HCPCS: 99283

== ENCOUNTER 2021-02-09 17:21 | Emergency (ER) | payer MEDICAID ==
[~2021-02-09] VITALS: Ht 180.3 cm; Wt 63.7 kg
[2021-02-09] MEDS ORDERED: LORazepam 1MG TABLET PO ONE (17:30)
[2021-02-09] MEDS ORDERED: LORazepam 1MG TABLET ONE (17:31)
--- NOTE | 2021-02-09 17:36 | NUR ---
[facility] FOR SEIZURE ACTIVITY WITNESSED BY BYSTANDERS. PER EMS SZ LASTED <60 SECONDS AND PT WAS POSTICTAL AFTEREARDS. NO LOSS OF BLADDER OR BOWEL. NO MEDS GIVEN ON SCENE. PT WITH HX OF ETOH USE AND SZ, STATES LAST DRINK WAS YESTERDAY AND DAILY USE RANGES FROM 1/2 PINT TO 1 1/2 PINTS. PT NOW A/0X4, TREMULOUS IN GURNEY. SEIZURE PRECAUTIONS IN PLACE AND PT CONNECTED TO CARDIAC MONITORS. PT ON 2 L NC FOR RA SAT OF 87% WHILE SLEEPING.
--- NOTE | 2021-02-09 17:40 | NUR ---
PT AWARE OF NEEDING UA, URINAL AT BEDSIDE
[2021-02-09 17:57] LABS: BASOPHILS % (AUTO) 1 % (0-1); EOSINOPHILS % (AUTO) 1 % (1-7); LYMPHOCYTES % (AUTO) 11 % (22-44); MEAN CORPUSCULAR HEMOGLOBIN 32.1 pg (27.5-34.5); MEAN CORPUSCULAR HGB CONC 34.3 g/dL (33.2-36.2); MEAN PLATELET VOLUME 7.2 fL (7.4-10.4); MONOCYTES % (AUTO) 8 % (2-9); NEUTROPHILS % (AUTO) 79 % (42-75); PLATELET COUNT 72 x10^3/uL (130-400); RED BLOOD COUNT 3.56 x10^6/uL (4.38-5.82); RED CELL DISTRIBUTION WIDTH 20.6 % (9.4-14.8)
[2021-02-09 17:58] LABS: ALBUMIN 3.5 g/dL (3.4-5.0); ANION GAP 20 mmol/L (5-15); CALCIUM 8.8 mg/dL (8.5-10.1); CHLORIDE 95 mmol/L (98-107)
--- NOTE | 2021-02-09 18:16 | NUR ---
PT SLEEPNG, RESP EVEN AND UNLBAORED. NO TREMORS NOTED AT THIS TIME
[2021-02-09 18:27] LABS: MICROSCOPIC INDICATED
[2021-02-09 18:30] VITALS: BP 121/76
[2021-02-09] MEDS ORDERED: POTASSIUM CHLORIDE 20 MEQ TAB.ER.PRT ONE (18:39)
--- NOTE | 2021-02-09 18:49 | NUR ---
PT AWAKE, TREMORS ARE MORE SEVERE. ER MD AT BEDSIDE FOR RECHECK
[2021-02-09] MEDS ORDERED: LORazepam 2 MG/ML, 1ML ONE (18:54)
[2021-02-09] MEDS ORDERED: POTASSIUM CHLORIDE 20 MEQ TAB.ER.PRT PO ONE (19:00)
[2021-02-09] MEDS ORDERED: LORazepam 2 MG/ML, 1ML IVPush ONE (19:00)
[2021-02-09 19:06] LABS: <PLATELET ESTIMATE> DECREASED; <PLT MORPHOLOGY> NORMAL PLT MORPH; ANISOCYTOSIS 1+
--- NOTE | 2021-02-09 19:36 | NUR ---
PT AMBULATORY TO DC DESK, AGREEABLE TO DC PLAN AND GIVEN TAXI VOUCHER TO [place]. PT LEFT WITH ALL PERSONAL BELONGINGS. IV DC WITH TIP INTACT.
== END 2021-02-09 19:39 | disposition home or self-care (01) ==
LOC: ED 18:21
DX: G40.409 Other generalized epilepsy and epileptic syndromes, not intractable, without status epilepticus (principal); F10.139 Alcohol abuse with withdrawal, unspecified; E87.6 Hypokalemia; R11.10 Vomiting, unspecified; R42 Dizziness and giddiness; Y90.0 Blood alcohol level of less than 20 mg/100 ml
CPT/HCPCS: 36415; 80048; 80320; 81001; 82040; 85025; 96374; 99283; J2060; G0480